=== PATIENT | male | born 1950 | race Caucasian/White ===

== ENCOUNTER → 2018-12-13 | Outpatient (REF) | payer MEDICARE, OTHER ==
[~2018-12-13] MED LIST: OXYCO/APAP1 TA5 PO; VYTORIN 10/401 TAB PO
[2018-12-13 14:53] LABS: URINE BILIRUBIN - DIPSTICK NEGATIVE (NEGATIVE); URINE BLOOD DIPSTICK NEGATIVE (NEGATIVE); URINE COLOR YELLOW; URINE GLUCOSE - DIPSTICK NEGATIVE (NEGATIVE); URINE KETONE NEGATIVE (NEGATIVE); URINE LEUK ESTERASE NEGATIVE (Negative); URINE NITRITE - DIPSTICK NEGATIVE (Negative); URINE PH 5.5 (4.5-8.0); URINE PROTEIN - DIPSTICK NEGATIVE (NEG-TRACE); URINE UROBILINOGEN - DIPSTICK 0.2 E.U./dL (0.2)
[2018-12-13 14:56] LABS: URINE CLARITY CLEAR
== END | disposition home or self-care (01) ==
LOC: LABSPEC 14:25
PROVIDERS: ATTEND Nurse Practitioner
DX: R10.9 Unspecified abdominal pain (principal)

== ENCOUNTER → 2018-12-18 | Outpatient (REF) | payer MEDICARE, OTHER ==
[2018-12-18 11:03] LABS: HEMATOCRIT 37.8 % (39.0-50.0); HEMOGLOBIN 12.4 g/dl (14.0-18.0); IMMATURE GRANULOCYTES 1.4 % (0.0-5.0); MEAN CELL VOLUME 93.1 fL CALC (80.0-100.0); MEAN CORPUSCULAR HGB 30.5 pG CALC (26.0-32.0); MEAN CORPUSCULAR HGB CONC 32.8 g/L CALC (32.0-36.0); NEUT# 5.38 thou/uL (1.82-7.42); RED BLOOD COUNT 4.06 mill/uL (4.70-6.10); RED CELL DISTRI WIDTH 12.8 % (11.5-15.5)
[2018-12-18 11:28] LABS: LIPASE 25 u/l (23-300)
[2018-12-18 11:29] LABS: ALBUMIN 3.9 g/dL (3.2-5.0); AMYLASE < 30 u/l (30-110); ANION GAP 15 (6-22 (CALC)); BILIRUBIN, TOTAL 1.2 mg/dL (0.0-1.4); BUN 28 mg/dL (8-23); BUN/CREATININE RATIO 21 (12-20 (CALC)); CARBON DIOXIDE 27 mmol/l (22-30); CHLORIDE 103 mmol/l (95-108); CREATININE 1.4 mg/dL (0.7-1.3); GFR 50 ML/MIN (>=60 (CALC)); GFR FOR AFR.AMER. > 60 ML/MIN (>=60 (CALC)); POTASSIUM 4.4 mmol/l (3.5-5.1); SGOT/AST 30 u/l (19-48); SODIUM 140 mmol/l (137-146); TOTAL PROTEIN 7.2 g/dL (6.3-8.2)
[2018-12-18 11:30] LABS: ALKALINE PHOSPHATASE 105 u/l (38-126)
== END | disposition home or self-care (01) ==
LOC: CT 10:36
PROVIDERS: ATTEND Internal Medicine
DX: R10.9 Unspecified abdominal pain (principal); R11.0 Nausea; N20.1 Calculus of ureter

== ENCOUNTER 2019-12-20 | Day surgery (SDC) | payer MEDICARE, OTHER ==
[~2019-12-20] MED LIST changes: +ALPHAGAN P0.1 % OU; +ALPHAGAN5 ML OP; +ASPIRIN81 MG PO; +ATORVASTATIN CA10 MG PO; +CALCIUM +D PO; +COQ-10100 MG PO; +LIPITOR10 M1 PO; +MAGNESIUM250 M1 PO; +MULTIVITAMI9 PO; +OMEPRAZOLE DR40 MG PO
[2020-01-04] MEDS ORDERED: GAS RELIEF80 MG PO (14:01)
== END 2019-12-20 10:01 | disposition home or self-care (01) ==
PROC: 0DBP8ZX Excision of Rectum, Via Natural or Artificial Opening Endoscopic, Diagnostic (ICD-10-PCS; principal; 2019-12-20)
PROC: 0DBN8ZX Excision of Sigmoid Colon, Via Natural or Artificial Opening Endoscopic, Diagnostic (ICD-10-PCS; 2019-12-20)
PROC: 0DB78ZX Excision of Stomach, Pylorus, Via Natural or Artificial Opening Endoscopic, Diagnostic (ICD-10-PCS; 2019-12-20)
DX: Z12.11 Encounter for screening for malignant neoplasm of colon (principal); K62.89 Other specified diseases of anus and rectum; K29.70 Gastritis, unspecified, without bleeding; K21.9 Gastro-esophageal reflux disease without esophagitis